=== PATIENT | female | born 1975 | race Caucasian/White ===

== ENCOUNTER 2018-01-29 10:17 | Emergency (ER) | payer OTHER | END 2018-01-29 10:58 | disposition home or self-care (01) | LOC: ER 10:17 | DX: K61.0 Anal abscess (principal); L02.215 Cutaneous abscess of perineum (principal); Z88.0 Allergy status to penicillin; Z98.51 Tubal ligation status; Z90.49 Acquired absence of other specified parts of digestive tract | CPT/HCPCS: 46050; 56405; 99284 ==